=== PATIENT | female | born 1955 | race Caucasian/White ===

== ENCOUNTER 2016-11-08 17:08 | Inpatient (IN) | payer OTHER ==
[~2016-11-08] VITALS: Ht 162.6 cm; Wt 65.0 kg
[~2016-11-08 17:08] MED LIST: ASCORBIC ACID100 MG PO; COMPAZINE10 MG PO; CYANOCOBAL1000 MCG/2 IM; FLONASE16 G1 BOTH NARES; LEVOTHROID,S0.175 M1 PO; MULTIVITAMIN1 EAC2 PO; ONDANSETRON HCL8 MG PO; PROBIOTIC1 EAC1 PO; SYNTHROID100 MCG PO; TYLENOL WITH C1 EACH PO; VITAMIN C1000 MG PO; ZANTAC PO; ZANTAC75 M1 PO; ZOFRAN4 MG PO; ZOLOFT PO; ZOLOFT100 MG PO
[2016-11-08 18:14] LABS: HEMATOCRIT 35.8 % (36.0-46.0); MCH 29.4 PG (29.0-34.0); MCHC 33.8 G/DL (30.0-36.0); MCV 87.1 FL (83-99); MEAN PLAT.VOLUME 10.7 uM^3 (9.5-12.4); PLATELET COUNT 257 K/uL (156-360); RBC DIS.WIDTH-CV 12.7 % (11.8-14.6); RBC DIS.WIDTH-SD 39.7 % (39-53); RED BLOOD COUNT 4.11 M/uL (3.80-5.20)
[2016-11-08 18:16] LABS: CHLORIDE 99 mEq/L (99-109); POTASSIUM 4.1 mEq/L (3.7-5.4); SODIUM 133 mEq/L (136-147)
[2016-11-08 18:18] LABS: GLUCOSE 101 mg/dL (70-99)
[2016-11-08 18:19] LABS: ANION GAP 12 MEQ/L (2-14)
[2016-11-08 18:20] LABS: TOTAL BILIRUBIN 0.4 mg/dL (0.0-1.0)
[2016-11-08 18:22] LABS: ALKALINE PHOSPHATASE 146 IU/L (3-129); GFR ESTIMATE (CALCULATED) > 59 mL/min/
[2016-11-08 18:23] LABS: UREA NITROGEN (BUN) 13 mg/dL (9-23)
[2016-11-08 18:28] LABS: WHITE BLOOD COUNT 1.4 K/uL (4.1-10.2)
[2016-11-08 18:37] LABS: ADD MIUA? YES; BILIRUBIN NEGATIVE; BLOOD TRACE; COLOR YELLOW ((YELLOW)); GLUCOSE (STRIP) NEGATIVE; KETONES NEGATIVE; LEUKOCYTES NEGATIVE; NITRITE NEGATIVE; PROTEIN (STRIP) NEGATIVE; SPECIFIC GRAVITY 1.019 (1.000-1.030); UROBILINOGEN 0.2 MG/DL (0.2-1.0)
[2016-11-08 19:26] LABS: EOSINOPHIL (%) 2.2 % (0-5); IMMATURE GRANULOCYTE (%) 0.7 % (0.0-0.7); IMMATURE GRANULOCYTE COUNT 0.1 K/uL; LYMPHOCYTE COUNT 0.9 K/uL (1.0-2.8); MONOCYTE (%) 19.4 % (3-12); MONOCYTE COUNT 0.3 K/uL (0-0.8); NEUTROPHIL (%) 8.7 % (45-76); NEUTROPHIL COUNT 0.1 K/uL (1.8-6.4)
[2016-11-08 19:48] LABS: BACTERIA NONE SEEN; CASTS NONE SEEN /LPF; CRYSTALS NONE SEEN; EPITHELIAL CELLS NONE SEEN; MUCUS NONE SEEN; RED BLOOD CELLS 0-5 /HPF (0-5); UCUL ADDED? NO; WHITE BLOOD CELLS 0-5 /HPF (0-5)
[2016-11-08] MEDS ORDERED: PERCOCET 5/31 TABLET PO (23:16)
[2016-11-08] MEDS ORDERED: NEOSPORIN + P28.3 GM TP (23:16)
[2016-11-08] MEDS ORDERED: ZYPREXA2.5 MG PO (23:17)
[2016-11-08] MEDS ORDERED: ATIVAN0.5 MG PO (23:17)
[2016-11-09 02:02] LABS: C-REACTIVE PROTEIN 135.9 MG/L (0-10)
[2016-11-09 09:59] LABS: EOSINOPHIL (%) 0.7 % (0-5); HEMATOCRIT 28.4 % (36.0-46.0); IMMATURE GRANULOCYTE (%) 1.4 % (0.0-0.7); IMMATURE GRANULOCYTE COUNT 0.2 K/uL; LYMPHOCYTE COUNT 0.9 K/uL (1.0-2.8); MCH 29.2 PG (29.0-34.0); MCHC 32.7 G/DL (30.0-36.0); MCV 89.3 FL (83-99); MONOCYTE (%) 32.9 % (3-12); MONOCYTE COUNT 0.5 K/uL (0-0.8); NEUTROPHIL (%) 0 % (45-76); PLATELET COUNT 242 K/uL (156-360); RBC DIS.WIDTH-CV 12.8 % (11.8-14.6); RBC DIS.WIDTH-SD 40.2 % (39-53)
[2016-11-09 10:00] LABS: RED BLOOD COUNT 3.18 M/uL (3.80-5.20); WHITE BLOOD COUNT 1.4 K/uL (4.1-10.2)
[2016-11-09 10:17] LABS: POTASSIUM 3.8 mEq/L (3.7-5.4); SODIUM 139 mEq/L (136-147)
[2016-11-09 10:18] LABS: GLUCOSE 93 mg/dL (70-99)
[2016-11-09 10:20] LABS: ANION GAP 7 MEQ/L (2-14)
[2016-11-09 10:22] LABS: GFR ESTIMATE (CALCULATED) > 59 mL/min/
[2016-11-09 10:23] LABS: UREA NITROGEN (BUN) 6 mg/dL (9-23)
[2016-11-09 10:42] LABS: CHLORIDE 110 mEq/L (99-109)
[2016-11-09 10:53] LABS: HEMATOLOGY COMMENT 1 SMEAR COMPATIBLE
[2016-11-09 14:26] VITALS: BP 113/59
[2016-11-09 19:39] VITALS: BP 95/55
[2016-11-09 23:24] VITALS: BP 107/52
[2016-11-10 03:31] VITALS: BP 90/45
[2016-11-10 06:50] VITALS: BP 107/61
[2016-11-10 07:42] LABS: HEMATOCRIT 29.1 % (36.0-46.0); MCH 28.7 PG (29.0-34.0); MCHC 32.6 G/DL (30.0-36.0); MCV 87.9 FL (83-99); MEAN PLAT.VOLUME 10.6 uM^3 (9.5-12.4); PLATELET COUNT 256 K/uL (156-360); RBC DIS.WIDTH-CV 13.3 % (11.8-14.6); RBC DIS.WIDTH-SD 42.6 % (39-53); RED BLOOD COUNT 3.31 M/uL (3.80-5.20)
[2016-11-10 07:43] LABS: WHITE BLOOD COUNT 2.4 K/uL (4.1-10.2)
[2016-11-10 07:50] LABS: ALKALINE PHOSPHATASE 98 IU/L (3-129); ANION GAP 7 MEQ/L (2-14); CHLORIDE 109 MEQ/L (99-109); GFR ESTIMATE (CALCULATED) > 59 mL/min/; GLUCOSE 86 mg/dL (70-99); IRON 11 MCG/DL (35-150); POTASSIUM 3.8 MEQ/L (3.7-5.4); SAMPLE HEMOLYSIS CHECK 0; SAMPLE ICTERIC CHECK 0; SAMPLE LIPEMIA CHECK 0; SODIUM 138 MEQ/L (136-147); TOTAL BILIRUBIN 0.3 MG/DL (0.0-1.0); UREA NITROGEN (BUN) 4 mg/dL (9-23)
[2016-11-10 08:00] LABS: HEMATOLOGY COMMENT 1 SMEAR COMPATIBLE; USER ID CCL
[2016-11-10 08:01] LABS: EOSINOPHIL (%) 0.4 % (0-5); LYMPHOCYTE COUNT 1.3 K/uL (1.0-2.8); MONOCYTE COUNT 1.1 K/uL (0-0.8); NEUTROPHIL (%) 0.9 % (45-76)
[2016-11-10 08:52] LABS: INTERNAL CONTROL VALID? YES
[2016-11-10 09:10] LABS: C DIFF TOXIN NEGATIVE (NEGATIVE)
[2016-11-10 09:11] LABS: PROBE CHECK PASS; SPECIMEN PROCESSING CONTROL PASS
[2016-11-10 11:57] VITALS: BP 102/54
[2016-11-10 15:28] VITALS: BP 97/52
[2016-11-11 07:32] VITALS: BP 101/58
[2016-11-11 08:47] LABS: ANION GAP 8 MEQ/L (2-14); CHLORIDE 108 MEQ/L (99-109); GFR ESTIMATE (CALCULATED) > 59 mL/min/; GLUCOSE 83 mg/dL (70-99); POTASSIUM 3.6 MEQ/L (3.7-5.4); SAMPLE HEMOLYSIS CHECK 0; SAMPLE ICTERIC CHECK 0; SAMPLE LIPEMIA CHECK 0; SODIUM 140 MEQ/L (136-147); UREA NITROGEN (BUN) 5 mg/dL (9-23)
[2016-11-11 09:01] LABS: NRBC (%) 0.9 /100 WBC (0-0)
[2016-11-11 09:40] LABS: DELETE MACHINE DIFF? YES; HEMATOCRIT 30.9 % (36.0-46.0); MCH 29.2 PG (29.0-34.0); MCV 88.5 FL (83-99); PLATELET COUNT 299 K/uL (156-360); RBC DIS.WIDTH-CV 13.4 % (11.8-14.6); RBC DIS.WIDTH-SD 43.3 % (39-53); RED BLOOD COUNT 3.49 M/uL (3.80-5.20)
[2016-11-11 09:42] LABS: WHITE BLOOD COUNT 9.4 K/uL (4.1-10.2)
[2016-11-11 10:35] LABS: ABS NEUTROPHIL COUNT 3.75; PLAT.SUFFICIENCY ADEQUATE; POLYCHROMASIA RARE; USER ID STC
[2016-11-11 15:29] VITALS: BP 101/52
[2016-11-11 18:55] VITALS: BP 126/75
[2016-11-11 18:58] VITALS: BP 104/55
[2016-11-12 02:15] VITALS: BP 82/46
[2016-11-12 07:23] LABS: NRBC (%) 1.3 /100 WBC (0-0)
[2016-11-12 07:43] LABS: MCH 28.5 PG (29.0-34.0); MCHC 32.5 G/DL (30.0-36.0); MCV 87.7 FL (83-99); RBC DIS.WIDTH-CV 13.7 % (11.8-14.6); RBC DIS.WIDTH-SD 43.9 % (39-53); RED BLOOD COUNT 3.65 M/uL (3.80-5.20); WHITE BLOOD COUNT 36.6 K/uL (4.1-10.2)
[2016-11-12 07:44] LABS: DELETE MACHINE DIFF? YES
[2016-11-12 07:56] LABS: ABS NEUTROPHIL COUNT 24.54; MEAN PLAT.VOLUME 10.7 uM^3 (9.5-12.4); PLAT.SUFFICIENCY ADEQUATE; PLATELET COUNT 309 K/uL (156-360); POLYCHROMASIA OCC; USER ID CL
[2016-11-12 07:59] VITALS: BP 92/51
[2016-11-12 09:39] LABS: C DIFF TOXIN ND (NEGATIVE)
[2016-11-12 17:17] VITALS: BP 109/55
[2016-11-12 20:00] VITALS: BP 112/60
[2016-11-13 00:12] VITALS: BP 96/49
[2016-11-13 03:56] VITALS: BP 98/60
[2016-11-13 05:45] LABS: MEAN PLAT.VOLUME 10.9 uM^3 (9.5-12.4); NRBC (%) 1.2 /100 WBC (0-0); PLATELET COUNT 257 K/uL (156-360)
[2016-11-13 06:09] VITALS: BP 98/62
[2016-11-13 06:55] LABS: HEMATOCRIT 28.9 % (36.0-46.0); MCH 28.7 PG (29.0-34.0); MCHC 32.5 G/DL (30.0-36.0); MCV 88.1 FL (83-99); RBC DIS.WIDTH-CV 14.1 % (11.8-14.6); RED BLOOD COUNT 3.28 M/uL (3.80-5.20); WHITE BLOOD COUNT 30.4 K/uL (4.1-10.2)
[2016-11-13 06:57] LABS: DELETE MACHINE DIFF? YES
[2016-11-13] MEDS ORDERED: FLAGYL500 MG PO (08:18)
[2016-11-13 09:01] LABS: ABS NEUTROPHIL COUNT 27.48; ANISOCYTOSIS 1+; METAMYELOCYTES 1.5 %; PLAT.SUFFICIENCY ADEQUATE; SEG.NEUTROPHILS 76.5 % (46.0-76.0); USER ID LYM
[2016-11-13 12:03] VITALS: BP 106/54
== END 2016-11-13 13:13 | disposition home or self-care (01) | DRG 392 ==
LOC: EME 17:08 → EDOF 23:30 → 2EAST 23:30
PROVIDERS: Hospitalist; Internal Medicine
DX: K57.32 Diverticulitis of large intestine without perforation or abscess without bleeding (principal); R78.81 Bacteremia; E87.1 Hypo-osmolality and hyponatremia; R30.0 Dysuria; D70.1 Agranulocytosis secondary to cancer chemotherapy; E78.5 Hyperlipidemia, unspecified; E03.9 Hypothyroidism, unspecified; F17.200 Nicotine dependence, unspecified, uncomplicated; C50.912 Malignant neoplasm of unspecified site of left female breast; D64.81 Anemia due to antineoplastic chemotherapy; R19.7 Diarrhea, unspecified
CPT/HCPCS: 80048; 80053; 81003; 82272; 82728; 83540; 84466; 85025; 85027; 86140; 87040; 87076; 87177; 87185; 87493; 87801; 96361; 96374; 96375; 99281; 99285; J0692; J0696; J1170; J1447; J1644; J2060; J2270; J2405; J2543; J2765; J7030; J7040; J7050; S0030